=== PATIENT | male | born 1935 | race Two or more races ===

== ENCOUNTER 2018-08-30 17:09 | Emergency (ER) | payer MEDICARE, MEDICAID ==
[~2018-08-30] VITALS: Ht 170.2 cm; Wt 112.0 kg
[2018-08-30] MEDS ORDERED: ONDANSETRON HCL/PF 4 MG/2 ML VIAL ONE ×2 (17:30→18:39)
[2018-08-30] MEDS ORDERED: HYDROMORPHONE 1 MG/1 ML DISP.SYRIN ONE (17:30)
[2018-08-30] MEDS ORDERED: ONDANSETRON HCL/PF 4 MG/2 ML VIAL IVP ONE (17:30)
[2018-08-30] MEDS ORDERED: HYDROMORPHONE INJ 2 MG/ML DISP.SYRIN IV ONE (17:30)
[2018-08-30] MEDS ORDERED: IV NS 0.9% 500 ML BAG IV ONE (17:30)
--- NOTE | 2018-08-30 17:30 | NUR ---
ADDENDUM: Intravenous End Time Documentation: Normal saline 500 cc (IV-WO): start time: 1730 PM; end time:1800 PM : IV site: 20 Port # 1
--- NOTE | 2018-08-30 17:40 | NUR ---
PT PRESENTED TO THE ER WITH A C/O BACK PAIN. PT HAS HX OF CHRONIC BACK PAIN, BUT IT IS WORSE TODAY. PT DENIES TRAUMA. PT TAKEN TO ER 7.
[2018-08-30 17:45] LABS: BASOPHILS # (AUTO) 0.1 /CMM (0.0-0.2); BASOPHILS % (AUTO) 0.5 % (0.0-2.0); EOSINOPHILS % (AUTO) 4.3 % (0.0-6.0); HEMATOCRIT 37 % (39-51); HEMOGLOBIN 11.8 g/dL (13.5-17.5); LYMPHOCYTES # (AUTO) 1.5 /CMM (0.8-4.8); LYMPHOCYTES % (AUTO) 15.4 % (20.0-44.0); MEAN CORPUSCULAR HGB CONC 32 g/dl (31.0-36.0); MEAN CORPUSCULAR VOLUME 79 fL (80-96); MONOCYTES # (AUTO) 0.9 /CMM (0.1-1.30); MONOCYTES % (AUTO) 9.7 % (2.0-12.0); NEUTROPHILS # (AUTO) 6.7 /CMM (1.8-8.9); NEUTROPHILS % (AUTO) 70.1 % (43.0-81.0); PLATELET COUNT (AUTO) 295 /CMM (150-450); RED BLOOD CELL COUNT(AUTO) 4.62 MIL/uL (4.5-6.0); WHITE BLOOD COUNT (AUTO) 9.5 K/uL (4.3-11.0)
[2018-08-30 17:53] LABS: CALCIUM, SERUM 9.4 mg/dL (8.5-10.1); CARBON DIOXIDE 24 mmol/L (21-32); CHLORIDE 102 mmol/L (98-107); CREATININE 1.7 mg/dL (0.6-1.3); GLUCOSE 120 mg/dL (74-106); POTASSIUM 4.4 mmol/L (3.5-5.1); SODIUM SERUM 137 mmol/L (136-145); UREA NITROGEN, BLOOD 23 mg/dL (7-18)
[2018-08-30] MEDS ORDERED: IBUP-1953 PO (17:57)
[2018-08-30] MEDS ORDERED: SITA1TAB2 PO (17:57)
[2018-08-30] MEDS ORDERED: OXYB10TA PO (17:57)
[2018-08-30] MEDS ORDERED: GLIM4TAB2 PO (17:57)
[2018-08-30] MEDS ORDERED: METO-358 PO (17:57)
[2018-08-30] MEDS ORDERED: ROSU10TA28 PO (17:57)
[2018-08-30] MEDS ORDERED: VALS1TAB2 PO (17:57)
[2018-08-30] MEDS ORDERED: ALLO300T2 PO (17:57)
[2018-08-30 17:59] LABS: ALANINE AMINOTRANSFERASE 24 U/L (12-78); ALBUMIN 3.6 g/dL (3.4-5.0); ALKALINE PHOSPHATASE 52 U/L (46-116); ASPARTATE AMINOTRANSFERASE 19 U/L (15-37); BILIRUBIN,TOTAL 0.3 mg/dL (0.2-1.0); LIPASE 214 U/L (73-393); TOTAL PROTEIN, SERUM 7.6 g/dL (6.4-8.2)
[2018-08-30] MEDS ORDERED: DUTA0.5C PO (17:59)
[2018-08-30] MEDS ORDERED: LINA290C PO (17:59)
[2018-08-30] MEDS ORDERED: BISA5TAB10 PO (17:59)
[2018-08-30] MEDS ORDERED: INSU200I4 SQ (17:59)
[2018-08-30] MEDS ORDERED: ERGO500014 PO (17:59)
[2018-08-30] MEDS ORDERED: TAMS-12 PO (17:59)
--- NOTE | 2018-08-30 18:43 | NUR ---
PT FEELS NAUSEATED. ORDER FROM DR DICKINSON GIVEN FOR ZOFRAN 4MG IVP.
[2018-08-30] MEDS ORDERED: ONDANSETRON HCL/PF - ER 4 MG/2 ML VIAL IV ONE (19:00)
--- NOTE | 2018-08-30 19:25 | NUR ---
IV removed. Catheter intact and site benign. Pressure and 4x4 applied to site. No bleeding noted. Patient discharged to home in stable condition. Written and verbal after care instructions given. Patient verbalizes understanding of instruction AND RX. PT'S SON IS DRIVING PT HOME. VSS. NAD NOTED. PT LEFT VIA WC TO THE CAR.
[2018-08-30 19:40] VITALS: BP 123/69
== END 2018-08-30 19:40 | disposition home or self-care (01) ==
LOC: ER 17:17
DX: I71.2 Thoracic aortic aneurysm, without rupture (principal); R10.9 Unspecified abdominal pain; E86.0 Dehydration; E11.9 Type 2 diabetes mellitus without complications; E66.9 Obesity, unspecified; I10 Essential (primary) hypertension; G89.29 Other chronic pain; M54.9 Dorsalgia, unspecified; Z85.038 Personal history of other malignant neoplasm of large intestine; Z98.890 Other specified postprocedural states; Z60.2 Problems related to living alone; Z79.2 Long term (current) use of antibiotics
CPT/HCPCS: 36415; 74176; 80048; 80076; 83690; 85025; 93005; 96361; 96374; 96375; 96376; 99285; J1170; J2405 ×2; J7030